=== PATIENT | male | born 1975 | race African-American/Black ===

== ENCOUNTER 2018-06-22 18:10 | Emergency (ER) | payer BC, MEDICAID ==
[~2018-06-22] VITALS: Ht 185.4 cm; Wt 128.3 kg
[2018-06-22] MEDS ORDERED: ASPIRIN 81 MG TABLET CHEW PO ONE (18:30)
[2018-06-22] MEDS ORDERED: SODIUM CHLORIDE FLUSH 10ML SYR IVF ONE (18:30)
[2018-06-22 18:46] LABS: BASOPHILS # (AUTO) 0.01 x10^3/uL (0-0.1); BASOPHILS % (AUTO) 0 % (0-1); EOSINOPHILS # (AUTO) 0.35 x10^3/uL (0-0.4); EOSINOPHILS % (AUTO) 4 % (1-7); LYMPHOCYTES # (AUTO) 1.36 x10^3/uL (1-3.4); LYMPHOCYTES % (AUTO) 14 % (22-44); MD NO; MEAN CORPUSCULAR HEMOGLOBIN 30.6 pg (27.5-34.5); MEAN CORPUSCULAR HGB CONC 34.4 g/dL (33.2-36.2); MEAN CORPUSCULAR VOLUME 88.9 fL (81-97); MEAN PLATELET VOLUME 9.8 fL (7.4-10.4); MONOCYTES # (AUTO) 0.78 x10^3/uL (0.2-0.8); MONOCYTES % (AUTO) 8 % (2-9); NEUTROPHILS # (AUTO) 7.56 x10^3/uL (1.8-6.8); NEUTROPHILS % (AUTO) 75 % (42-75); PLATELET COUNT 184 x10^3/uL (130-400); RED BLOOD COUNT 4.83 x10^6/uL (4.38-5.82); RED CELL DISTRIBUTION WIDTH 15.3 % (9.4-14.8)
[2018-06-22] MEDS ORDERED: ASPIRIN 81 MG TABLET CHEW ONE (18:52)
[2018-06-22] MEDS ORDERED: LISI-167 PO (18:55)
[2018-06-22 19:26] LABS: ALANINE AMINOTRANSFERASE 42 U/L (12-78); ALBUMIN 3.4 g/dL (3.4-5.0); ANION GAP 7 mmol/L (5-15); CALCIUM 8.3 mg/dL (8.5-10.1); CHLORIDE 108 mmol/L (98-107); CREATININE 1.73 mg/dL (0.7-1.3)
[2018-06-22 19:30] LABS: ALKALINE PHOSPHATASE 98 U/L (45-117); BILIRUBIN,TOTAL 0.4 mg/dL (0.2-1.0); TOTAL PROTEIN 7.5 g/dL (6.4-8.2); TROPONIN I 0.086 ng/mL (0.000-0.045)
[2018-06-22 20:18] VITALS: BP 128/80
== END 2018-06-22 21:18 | disposition home or self-care (01) ==
LOC: ED 21:12
DX: R07.89 Other chest pain (principal); I10 Essential (primary) hypertension
CPT/HCPCS: 36415; 71045; 80053; 83880; 84484; 85025; 93005; 99285

== ENCOUNTER 2018-07-11 18:19 | Inpatient (IN) | payer MEDICAID, OTHER ==
[~2018-07-11] VITALS: Ht 185.4 cm; Wt 128.6 kg
[~2018-07-11 18:19] MED LIST: LISI-167 PO
[2018-07-11] MEDS ORDERED: CARV-39 PO (18:52)
[2018-07-11] MEDS ORDERED: HYDR-3342 PO (18:52)
[2018-07-11] MEDS ORDERED: LOSA25TA6 PO (18:52)
[2018-07-11] MEDS ORDERED: ASPIRIN 81 MG TABLET CHEW ONE (18:54)
[2018-07-11] MEDS ORDERED: ASPIRIN 81 MG TABLET CHEW PO ONE (19:00)
[2018-07-11 19:23] LABS: BASOPHILS # (AUTO) 0.06 x10^3/uL (0-0.1); BASOPHILS % (AUTO) 1 % (0-1); EOSINOPHILS # (AUTO) 0.24 x10^3/uL (0-0.4); EOSINOPHILS % (AUTO) 3 % (1-7); LYMPHOCYTES # (AUTO) 1.11 x10^3/uL (1-3.4); LYMPHOCYTES % (AUTO) 14 % (22-44); MD NO; MEAN CORPUSCULAR HEMOGLOBIN 31.1 pg (27.5-34.5); MEAN CORPUSCULAR HGB CONC 34.5 g/dL (33.2-36.2); MEAN CORPUSCULAR VOLUME 90.1 fL (81-97); MEAN PLATELET VOLUME 9.9 fL (7.4-10.4); MONOCYTES # (AUTO) 0.69 x10^3/uL (0.2-0.8); MONOCYTES % (AUTO) 9 % (2-9); NEUTROPHILS # (AUTO) 5.76 x10^3/uL (1.8-6.8); NEUTROPHILS % (AUTO) 73 % (42-75); PLATELET COUNT 183 x10^3/uL (130-400); RED BLOOD COUNT 4.94 x10^6/uL (4.38-5.82); RED CELL DISTRIBUTION WIDTH 15.2 % (9.4-14.8)
[2018-07-11 19:37] LABS: ALBUMIN 3.6 g/dL (3.4-5.0); ANION GAP 9 mmol/L (5-15); CALCIUM 8.5 mg/dL (8.5-10.1); CHLORIDE 102 mmol/L (98-107); CREATININE 1.56 mg/dL (0.7-1.3)
[2018-07-11 19:41] LABS: ALANINE AMINOTRANSFERASE 46 U/L (12-78); ALKALINE PHOSPHATASE 123 U/L (45-117); BILIRUBIN,TOTAL 0.4 mg/dL (0.2-1.0); TOTAL PROTEIN 8.3 g/dL (6.4-8.2); TROPONIN I 0.094 ng/mL (0.000-0.045)
[2018-07-11] MEDS ORDERED: NS + 20MEQ KCL 1,000 ML IV SCH (20:12)
[2018-07-11] MEDS ORDERED: POLYETHYLENE GLYCOL 17 GM PACKET PO PRN (20:30)
[2018-07-11] MEDS ORDERED: morphine SULFATE 10 MG/ML, 1ML IVPush PRN (20:30)
[2018-07-11] MEDS ORDERED: ONDANSETRON 2MG/ML, 2ML IVPush PRN (20:30)
[2018-07-11] MEDS ORDERED: ENOXAPARIN 40 MG/0.4 ML SQ SCH (20:30)
[2018-07-11] MEDS ORDERED: DOCUSATE 100 MG CAPSULE PO PRN (20:30)
[2018-07-11] MEDS ORDERED: HYDROcodone/APAP 5/325 TABLET PO PRN (20:30)
[2018-07-11] MEDS ORDERED: ENALAPRILAT 1.25 MG/ML, 2ML IV PRN (20:30)
[2018-07-11] MEDS ORDERED: hydrALAzine 20 MG/ML, 1ML IV PRN (20:30)
[2018-07-11] MEDS ORDERED: ACETAMINOPHEN 325 MG TABLET PO PRN (20:30)
[2018-07-11] MEDS ORDERED: LABETALOL 5MG/ML, 20ML IVPush PRN (20:30)
[2018-07-11 21:00] VITALS: BP 135/85
[2018-07-11] MEDS: CARVEDILOL 25 MG TABLET PO SCH (22:19)
[2018-07-11] MEDS: FAMOTIDINE 20 MG TABLET PO SCH (22:19)
[2018-07-12 00:20] VITALS: BP 132/84
[2018-07-12 05:13] LABS: CHOLESTEROL, TOTAL 271 mg/dL (140-239); TRIGLYCERIDES 283 mg/dL (50-200); VLDL CHOLESTEROL 57 mg/dL (0-25)
[2018-07-12 05:15] LABS: CHOL/HDL RATIO 7.3; HDL CHOL % 14 % (26-37); HDL CHOLESTEROL (DIRECT) 37 mg/dL (40-60); LDL CHOLESTEROL,CALCULATED 177 mg/dL (54-169); LDL/HDL RATIO 4.8 (0.5-3.0); TROPONIN I 0.096 ng/mL (0.000-0.045)
[2018-07-12 07:06] VITALS: BP 152/87
[2018-07-12] MEDS: FAMOTIDINE 20 MG TABLET PO SCH (08:30)
[2018-07-12] MEDS: CARVEDILOL 25 MG TABLET PO SCH (08:30)
[2018-07-12] MEDS ORDERED: REGADENOSON 0.4 MG/5 ML SYRINGE ONE (08:45)
[2018-07-12] MEDS ORDERED: LOSARTAN 25MG TABLET PO SCH (09:00)
[2018-07-12] MEDS ORDERED: PRAV20TA2 PO (12:46)
[2018-07-12] MEDS ORDERED: LOSA50TA7 PO (12:46)
[2018-07-12 13:40] VITALS: BP 147/85
== END 2018-07-12 14:08 | disposition home or self-care (01) | DRG 304 ==
LOC: ED 18:53 → EDIP 20:02 → SUATTDRO 20:03 → 5SO 20:48
PROVIDERS: ADMIT Family Medicine; ATTEND Family Medicine
DX: I16.0 Hypertensive urgency (principal); N17.0 Acute kidney failure with tubular necrosis; I12.9 Hypertensive chronic kidney disease with stage 1 through stage 4 chronic kidney disease, or unspecified chronic kidney disease; N18.3 Chronic kidney disease, stage 3 (moderate); E86.0 Dehydration; E78.00 Pure hypercholesterolemia, unspecified; D86.9 Sarcoidosis, unspecified; Z82.49 Family history of ischemic heart disease and other diseases of the circulatory system
CPT/HCPCS: 36415; 71045; 78452; 80053; 80061; 84484; 85025; 93005; 93017; 93975; 94660; 99285; G0378; J1650; J2785; J3480; A9502; C9898

== ENCOUNTER 2018-09-13 17:27 | Emergency (ER) | payer OTHER ==
[~2018-09-13] VITALS: Ht 185.4 cm; Wt 127.0 kg
[~2018-09-13 17:27] MED LIST changes: +CARV-39 PO; +HYDR-3342 PO; +LOSA25TA25 PO; +LOSA50TA7 PO; +PRAV20TA2 PO
[2018-09-13] MEDS ORDERED: AMLO10TA6 PO (17:58)
[2018-09-13] MEDS ORDERED: HYDR12.517 PO (17:58)
[2018-09-13] MEDS ORDERED: OXYcodone/APAP 5/325MG TABLET PO ONE (18:00)
[2018-09-13] MEDS ORDERED: KETOROLAC 30 MG/1 ML IM ONE (18:00)
[2018-09-13] MEDS ORDERED: DIAZEPAM 10 MG TABLET PO ONE (18:00)
[2018-09-13] MEDS ORDERED: DIAZEPAM 5 MG TABLET ONE (19:08)
[2018-09-13] MEDS ORDERED: OXYcodone/APAP 5/325MG TABLET ONE (19:09)
[2018-09-13] MEDS ORDERED: KETOROLAC 30 MG/1 ML ONE (19:09)
[2018-09-13] MEDS ORDERED: ONDANSETRON ODT 4 MG ONE (19:21)
[2018-09-13] MEDS ORDERED: ONDANSETRON ODT 4 MG PO ONE (19:30)
[2018-09-13] MEDS ORDERED: LIDODERM 5% PATCH TD ONE (19:30)
--- NOTE | 2018-09-13 19:35 | NUR ---
LIDODERM REQ TUBED TO PHARM
[2018-09-13 20:01] VITALS: BP 165/91
== END 2018-09-13 20:09 | disposition home or self-care (01) ==
LOC: ED 19:50
DX: S16.1XXA Strain of muscle, fascia and tendon at neck level, initial encounter (principal); S39.012A Strain of muscle, fascia and tendon of lower back, initial encounter; S29.012A Strain of muscle and tendon of back wall of thorax, initial encounter; S40.011A Contusion of right shoulder, initial encounter; I10 Essential (primary) hypertension; E78.5 Hyperlipidemia, unspecified; W01.0XXA Fall on same level from slipping, tripping and stumbling without subsequent striking against object, initial encounter; Y93.89 Activity, other specified; Y92.410 Unspecified street and highway as the place of occurrence of the external cause; Y99.8 Other external cause status
CPT/HCPCS: 72072; 72110; 72125; 73030; 96372; 99284; J1885; Q0162

== ENCOUNTER 2019-03-09 12:09 | Emergency (ER) | payer SELFPAY ==
[~2019-03-09] VITALS: Ht 185.4 cm; Wt 124.9 kg
[~2019-03-09 12:09] MED LIST changes: +AMLO10TA8 PO; +HYDR12.517 PO; +LOSA50TA14 PO; -LOSA50TA7 PO
--- NOTE | 2019-03-09 13:18 | NUR ---
INGOT HEADER: PT AMBULATORY TO ED ROOM 2 FROM [facility] IN [facility]
[2019-03-09 13:52] LABS: MEAN CORPUSCULAR HEMOGLOBIN 30.6 pg (27.5-34.5); MEAN CORPUSCULAR VOLUME 92.7 fL (81-97); MEAN PLATELET VOLUME 9.7 fL (7.4-10.4); PLATELET COUNT 156 x10^3/uL (130-400); RED BLOOD COUNT 4.79 x10^6/uL (4.38-5.82); RED CELL DISTRIBUTION WIDTH 16.1 % (9.4-14.8)
[2019-03-09 13:54] LABS: ALBUMIN 3.7 g/dL (3.4-5.0); ANION GAP 3 mmol/L (5-15); CALCIUM 8.9 mg/dL (8.5-10.1); CHLORIDE 106 mmol/L (98-107); CREATININE 1.54 mg/dL (0.7-1.3)
[2019-03-09 14:11] LABS: BASOPHILS % (AUTO) 0 % (0-1); EOSINOPHILS # (AUTO) 0.19 x10^3/uL (0-0.4); EOSINOPHILS % (AUTO) 2 % (1-7); LYMPHOCYTES % (AUTO) 10 % (22-44); MD SCAN; MONOCYTES # (AUTO) 0.86 x10^3/uL (0.2-0.8); MONOCYTES % (AUTO) 8 % (2-9); NEUTROPHILS # (AUTO) 8.49 x10^3/uL (1.8-6.8); NEUTROPHILS % (AUTO) 80 % (42-75)
--- NOTE | 2019-03-09 14:11 | NUR ---
[facility] CALLED [facility] [id number]
[2019-03-09 16:15] VITALS: BP 161/94
== END 2019-03-09 17:04 | disposition home or self-care (01) ==
LOC: ED 16:07
DX: K11.21 Acute sialoadenitis (principal); E78.5 Hyperlipidemia, unspecified; I10 Essential (primary) hypertension
CPT/HCPCS: 36415; 76536; 80048; 82040; 82150; 85025; 99284

== ENCOUNTER 2019-11-20 08:52 | Emergency (ER) | payer MEDICAID ==
[~2019-11-20] VITALS: Ht 185.4 cm; Wt 134.9 kg
[2019-11-20 08:57] VITALS: BP 189/102
[2019-11-20 09:57] LABS: BASOPHILS # (AUTO) 0.02 x10^3/uL (0-0.1); BASOPHILS % (AUTO) 0 % (0-1); EOSINOPHILS % (AUTO) 2 % (1-7); LYMPHOCYTES # (AUTO) 1.47 x10^3/uL (1-3.4); LYMPHOCYTES % (AUTO) 17 % (22-44); MD NO; MEAN CORPUSCULAR HEMOGLOBIN 30.4 pg (27.5-34.5); MEAN CORPUSCULAR HGB CONC 33.9 g/dL (33.2-36.2); MEAN CORPUSCULAR VOLUME 89.7 fL (81-97); MEAN PLATELET VOLUME 9.5 fL (7.4-10.4); MONOCYTES # (AUTO) 0.75 x10^3/uL (0.2-0.8); MONOCYTES % (AUTO) 9 % (2-9); NEUTROPHILS # (AUTO) 6.07 x10^3/uL (1.8-6.8); NEUTROPHILS % (AUTO) 71 % (42-75); PLATELET COUNT 194 x10^3/uL (130-400); RED BLOOD COUNT 5.42 x10^6/uL (4.38-5.82); RED CELL DISTRIBUTION WIDTH 14.6 % (9.4-14.8)
[2019-11-20 10:02] LABS: ANION GAP 6 mmol/L (5-15); CALCIUM 8.7 mg/dL (8.5-10.1); CHLORIDE 109 mmol/L (98-107)
[2019-11-20 10:05] LABS: ALANINE AMINOTRANSFERASE 50 U/L (12-78); ALKALINE PHOSPHATASE 83 U/L (45-117); BILIRUBIN,TOTAL 0.6 mg/dL (0.2-1.0); CREATININE 1.46 mg/dL (0.7-1.3); TOTAL PROTEIN 8.6 g/dL (6.4-8.2)
[2019-11-20] MEDS ORDERED: POTASSIUM CHLORIDE 20 MEQ TAB.ER.PRT PO ONE (11:00)
[2019-11-20] MEDS ORDERED: POTASSIUM CHLORIDE 20 MEQ TAB.ER.PRT ONE (11:21)
== END 2019-11-20 11:49 | disposition home or self-care (01) ==
LOC: ED 09:30
DX: R00.2 Palpitations (principal); E87.6 Hypokalemia; E78.5 Hyperlipidemia, unspecified; I10 Essential (primary) hypertension
CPT/HCPCS: 36415; 71046; 80053; 85025; 93005; 99285

== ENCOUNTER 2020-01-15 01:16 | Emergency (ER) | payer MEDICAID ==
[~2020-01-15] VITALS: Ht 185.4 cm; Wt 130.0 kg
--- NOTE | 2020-01-15 01:18 | NUR ---
pt called for triage, pt in lobby restroom at this time.
[2020-01-15] MEDS ORDERED: METHOCARBAMOL 750 MG TABLET ONE (01:47)
[2020-01-15] MEDS ORDERED: OXYcodone/APAP 10/325MG TABLET ONE (01:49)
[2020-01-15 01:58] LABS: BASOPHILS # (AUTO) 0.03 x10^3/uL (0-0.1); BASOPHILS % (AUTO) 0 % (0-1); EOSINOPHILS # (AUTO) 0.18 x10^3/uL (0-0.4); EOSINOPHILS % (AUTO) 2 % (1-7); LYMPHOCYTES # (AUTO) 1.36 x10^3/uL (1-3.4); LYMPHOCYTES % (AUTO) 13 % (22-44); MD NO; MEAN CORPUSCULAR HEMOGLOBIN 29.9 pg (27.5-34.5); MEAN CORPUSCULAR HGB CONC 33.3 g/dL (33.2-36.2); MEAN CORPUSCULAR VOLUME 89.8 fL (81-97); MEAN PLATELET VOLUME 9.8 fL (7.4-10.4); MONOCYTES # (AUTO) 0.82 x10^3/uL (0.2-0.8); MONOCYTES % (AUTO) 8 % (2-9); NEUTROPHILS # (AUTO) 7.76 x10^3/uL (1.8-6.8); NEUTROPHILS % (AUTO) 77 % (42-75); PLATELET COUNT 197 x10^3/uL (130-400); RED BLOOD COUNT 4.98 x10^6/uL (4.38-5.82); RED CELL DISTRIBUTION WIDTH 14.7 % (9.4-14.8)
[2020-01-15] MEDS ORDERED: METHOCARBAMOL 750 MG TABLET PO ONE (02:00)
[2020-01-15] MEDS ORDERED: OXYcodone/APAP 10/325MG TABLET PO ONE (02:00)
[2020-01-15 02:08] LABS: ANION GAP 7 mmol/L (5-15); CALCIUM 8.7 mg/dL (8.5-10.1); CHLORIDE 105 mmol/L (98-107)
[2020-01-15] MEDS ORDERED: ASPIRIN 81 MG TABLET CHEW ONE (02:29)
[2020-01-15] MEDS ORDERED: ASPIRIN 81 MG TABLET CHEW PO ONE (02:30)
[2020-01-15] MEDS ORDERED: BENZOCAINE AEROSOL SPRAY 20%, 60ML ONE (03:36)
--- NOTE | 2020-01-15 05:00 | NUR ---
PT UPDATED ON POC. MONITORING IN PLACE, CALL LIGHT WITHIN REACH.
[2020-01-15 05:01] VITALS: BP 146/50
[2020-01-15] MEDS ORDERED: OMNIPAQUE 350 MG/ML, 100ML BOTTLE ONE (05:44)
== END 2020-01-15 05:40 | disposition home or self-care (01) ==
LOC: ED 01:55
DX: S29.012A Strain of muscle and tendon of back wall of thorax, initial encounter (principal); R07.89 Other chest pain; D86.9 Sarcoidosis, unspecified; R94.31 Abnormal electrocardiogram [ECG] [EKG]; I10 Essential (primary) hypertension; E78.5 Hyperlipidemia, unspecified; X58.XXXA Exposure to other specified factors, initial encounter; Y93.89 Activity, other specified; Y92.89 Other specified places as the place of occurrence of the external cause; Y99.8 Other external cause status
CPT/HCPCS: 36415; 71045; 71275; 80048; 84484; 85025; 85379; 93005; 99285; Q9967

== ENCOUNTER 2020-01-21 17:37 | Emergency (ER) | payer MEDICAID ==
[~2020-01-21] VITALS: Ht 185.4 cm; Wt 125.9 kg
--- NOTE | 2020-01-21 18:20 | NUR ---
PT HAS CO COUGH FROM NASAL DRIP AND FEVER FOR 3 DAYS. PT DENIES CP OR SOB. PT NOT IN RESP DISTRESS. DENIES BODY ACHES. RA 95%.
--- NOTE | 2020-01-21 18:57 | NUR ---
AT BEDSIDE. REPORT TO [facility]
[2020-01-21] MEDS ORDERED: ACETAMINOPHEN 500 MG TABLET PO ONE (19:00)
[2020-01-21] MEDS ORDERED: ACETAMINOPHEN 500 MG TABLET ONE (19:14)
[2020-01-21 19:35] LABS: ALANINE AMINOTRANSFERASE 20 U/L (12-78); ALBUMIN 3.3 g/dL (3.4-5.0); ANION GAP 5 mmol/L (5-15); CALCIUM 8.2 mg/dL (8.5-10.1); CHLORIDE 104 mmol/L (98-107)
[2020-01-21 19:38] LABS: ALKALINE PHOSPHATASE 61 U/L (45-117); BILIRUBIN,TOTAL 0.8 mg/dL (0.2-1.0); CREATININE 1.63 mg/dL (0.7-1.3); TOTAL PROTEIN 7.7 g/dL (6.4-8.2)
[2020-01-21] MEDS ORDERED: AZITHROMYCIN 500 MG TABLET ONE (19:58)
[2020-01-21] MEDS ORDERED: AMOXICILLIN 500 MG CAPSULE ONE (19:58)
[2020-01-21] MEDS ORDERED: AZITHROMYCIN 500 MG TABLET PO ONE (20:00)
[2020-01-21] MEDS ORDERED: AMOXICILLIN 500 MG CAPSULE PO ONE (20:00)
[2020-01-21 20:03] VITALS: BP 169/84
[2020-01-21 20:13] LABS: MEAN CORPUSCULAR HGB CONC 33.6 g/dL (33.2-36.2); MEAN CORPUSCULAR VOLUME 89.2 fL (81-97); MEAN PLATELET VOLUME 9.8 fL (7.4-10.4); PLATELET COUNT 183 x10^3/uL (130-400); RED BLOOD COUNT 4.57 x10^6/uL (4.38-5.82); RED CELL DISTRIBUTION WIDTH 14.8 % (9.4-14.8)
[2020-01-21 20:14] LABS: BASOPHILS # (AUTO) 0.03 x10^3/uL (0-0.1); BASOPHILS % (AUTO) 0 % (0-1); EOSINOPHILS # (AUTO) 0.11 x10^3/uL (0-0.4); EOSINOPHILS % (AUTO) 1 % (1-7); LYMPHOCYTES % (AUTO) 9 % (22-44); MD NO; MONOCYTES # (AUTO) 1.56 x10^3/uL (0.2-0.8); MONOCYTES % (AUTO) 13 % (2-9); NEUTROPHILS # (AUTO) 9.47 x10^3/uL (1.8-6.8); NEUTROPHILS % (AUTO) 77 % (42-75)
== END 2020-01-21 20:43 | disposition home or self-care (01) ==
LOC: ED 19:46
DX: J15.9 Unspecified bacterial pneumonia (principal); Z20.828 Contact with and (suspected) exposure to other viral communicable diseases; R50.9 Fever, unspecified; I10 Essential (primary) hypertension; E78.5 Hyperlipidemia, unspecified
CPT/HCPCS: 36415; 71045; 80053; 85025; 99284; U0001